=== PATIENT | female | born 1940 | race Caucasian/White ===

== ENCOUNTER 2017-04-16 03:18 | Inpatient (IN) | payer MEDICARE, MEDICAID ==
--- NOTE | 2017-04-16 03:55 | EDM.PDOC ---
ED HPI GENERAL MEDICAL PROBLEM - General Chief Complaint: General Stated Complaint: Weakness, diabetic Time Seen by Provider: 04/16/17 03:44 Source of Information: Reports: Patient, EMS History Limitations: Reports: Other (patient having chills and tremors when initially here, dyspneic, having difficulty answering questions, blood glucose of 60) - History of Present Illness INITIAL COMMENTS - FREE TEXT/NARRATIVE: Patient states has not felt well for 48 hours, complaining of weakness with two falls, nausea but no emesis, chills, sweats, and increased pain in lower extremities. She is an insulin dependent diabetic and has been taking insulin in spite of not eating and drinking. Ambulance leon stated BS was 44 and gave her two tubes of glucose and BS improved to 100 prior to arrival. Onset: Gradual Onset Date: 04/13/17 Onset Time: 12:00 Duration: Day(s):, Getting Worse Location: Reports: Generalized Quality: Reports: Throbbing Severity: Severe Improves with: Reports: None Worsens with: Reports: Movement Associated Symptoms: Reports: Diaphoresis, Fever/Chills, Loss of Appetite, Malaise, Nausea/Vomiting, Rash, Weakness. Denies: Confusion, Chest Pain, Cough , cough w sputum, Seizure, Shortness of Breath, Syncope lower legs bilaterally Pain Score (Numeric/FACES): 8 - Related Data Allergies Allergy/AdvReac Type Severity Reaction Status Date / Time Penicillins Allergy Cannot Verified 04/16/17 03:37 Remember Home Meds: Home Meds Aspirin 325 mg PO DAILY 08/28/16 [History] Enalapril [Vasotec] 40 mg PO DAILY 08/28/16 [History] Furosemide 80 mg PO DAILY 08/28/16 [History] Hydrocodone/Acetaminophen [Hydrocodon-Acetaminoph 7.5-325] 1 each PO Q12H PRN [History] Isosorbide Dinitrate 30 mg PO DAILY 08/28/16 [History] Omeprazole 20 mg PO DAILY 08/28/16 [History] Simvastatin [Zocor] 40 mg PO BEDTIME 08/28/16 [History] Carvedilol 1.5 tab PO BID 04/16/17 [History] Insulin NPH/Insulin Reg,Human [NovoLIN 70-30] 5 units SQ BEDTIME 04/16/17 [ History] Insulin NPH/Insulin Reg,Human [NovoLIN 70-30] 15 unit SUBCNJ ACBREAKFAST [History] Minoxidil [Minoxidil] 20 mg PO DAILY 04/16/17 [History] Multivitamins with Iron [Daily [place] with Iron] 1 tab PO DAILY 04/16/17 [History] Pramipexole [Mirapex] 1 - 2 tab PO BEDTIME 04/16/17 [History] Sennosides/Docusate Sodium [Senna Plus Tablet] 2 tab PO BID 04/16/17 [History] amLODIPine Besylate [Amlodipine Besylate] 10 mg PO DAILY 04/16/17 [History] Past Medical History HEENT History: Reports: Cataract Cardiovascular History: Reports: High Cholesterol, Hypertension Gastrointestinal History: Reports: GERD Genitourinary History: Reports: Other (See Below) Other Genitourinary History: CKD Stage 3 Endocrine/Metabolic History: Reports: Other (See Below) Other Endocrine/Metabolic History: DM Type II - Past Surgical History GI Surgical History: Reports: Other (See Below) Musculoskeletal Surgical History: Reports: Arthroscopic Knee, Carpal Tunnel, Other (See Below) Social & Family History - Tobacco Use Smoking Status *Q: Unknown Ever Smoked - Recreational Drug Use Recreational Drug Use: No ED ROS GENERAL - Review of Systems Review Of Systems: See Below Constitutional: Reports: Fever, Chills, Malaise, Weakness, Diaphoresis, Decreased Appetite HEENT: Reports: No Symptoms, Glasses Respiratory: Reports: No Symptoms Cardiovascular: Reports: Edema. Denies: Chest Pain, Lightheadedness, Palpitations, Syncope Endocrine: Reports: Low Glucose GI/Abdominal: Reports: Decreased Appetite, Nausea. Denies: Abdominal Pain, Constipation, Diarrhea, Hematochezia, Melena, Vomiting : Reports: No Symptoms. Denies: Dysuria, Frequency, Hematuria, Incontinence, Urgency Musculoskeletal: Reports: Leg Pain (bilat lower extremity pain, usually chronic but worse over the last few days, usually takes several doses of norco a day) Skin: Reports: Erythema, Other (increasing redness and edema of bilat lower extremitis over the last few days, noted to have large area of erythema over right lateral breast, patient unaware of it) Neurological: Reports: Tremors, Weakness, Other (two falls due to weakness in last 48 hours, denies hitting head or head injury). Denies: Confusion, Dizziness, Headache, Syncope Psychiatric: Reports: No Symptoms Hematologic/Lymphatic: Reports: No Symptoms Immunologic: Reports: No Symptoms ED EXAM, GENERAL - Physical Exam Exam: See Below Exam Limited By: Other (patient initially hypoglycemic and having chills so had difficulty answering questions. did a little better job after being given an amp of D50) General Appearance: Alert, Mild Distress (secondary to pain, chills and fever, appears ill) Eye Exam: Bilateral Eye: EOMI, PERRL Ears: Normal External Exam, Normal Canal, Hearing Grossly Normal, Normal TMs Ear Exam: Bilateral Ear: Auricle Normal, Canal Normal, TM normal Nose: Normal Inspection, Normal Mucosa, No Blood Throat/Mouth: Normal Inspection, Normal Lips, Normal Teeth, Normal Gums, Normal Oropharynx, Normal Voice, No Airway Compromise, Other (oral mucous membranes tacky) Head: Atraumatic, Normocephalic Neck: Normal Inspection, Supple, Non-Tender, Full Range of Motion Respiratory/Chest: No Respiratory Distress (heart tones distant without MRG, patient has 3-4 + pitting woody edema of lower extrremities with large areas of erythema, warmth, and increased tenderness of bilat shins. Multiple, small, Nodular thick walled vesicular type lesions noted as well. fluid collected from one for culture), Decreased Breath Sounds, Rales (bibasilar), Other (O2 sat 95% on room air but tachypnic with resp rate of 28, ). No: Rhonchi, Wheezing Cardiovascular: Regular Rate, Rhythm (heart tones distant. 3-4 plus pitting peripheral edema bilat up to knees. pulses difficult to palpate. Lower shins reddemed, painful and warm to touch with thick walled vesicular type lesions on both lower legs), Other. No: No JVD, No Rub, JVD GI/Abdominal: Soft (hypoactive bowel sounds, abdomen very mildly diffusely tender, more so in epigastric area. No guarding distension or rigidity) (Female) Exam: Deferred Rectal (Female) Exam: Deferred Back Exam: Normal Inspection. No: CVA Tenderness (L), CVA Tenderness (R), Paraspinal Tenderness, Vertebral Tenderness Extremities: Pedal Edema, Leg Pain, Limited Range of Motion, Increased Warmth, Redness. No: Rosmery's Sign Neurological: Alert, Oriented, CN II-XII Intact, Normal Cognition, Slow to Respond (initially but this improved after BS improved) Psychiatric: Normal Affect, Normal Mood (skin hot and dry. Lower extremities red, painful and warm to touch as described above. Large area of reddened skin , tender with palpation along right lateral breast. No open areas or areas of fluctuance noted) Skin Exam: Erythema, Increased Warmth Lymphatic: No Adenopathy EKG INTERPRETATION EKG Date: 04/16/17 Rhythm: Other (sinus rhyth with RBBB) Rate (Beats/Min): 81 [place]: Normal P-Wave: Present QRS: RBBB ST-T: Other (inverted lead V1 AND avr) QT: Normal Comparison: NA - No Prior EKG EKG Interpretation Comments: SINUS RHYTHM WITH RBBB, poor R wave progression, no previous to compare to Course - Vital Signs Last Recorded V/S: Last Vital Signs Temp 37.8 C 04/16/17 03:20 Pulse 81 04/16/17 03:20 Resp 24 H 04/16/17 03:20 BP 129/39 L 04/16/17 03:20 Pulse Ox 95 04/16/17 03:20 - Orders/Labs/Meds Orders: Active Orders 24 hr Category Date Time Status Admission Status [Patient Status] [ADT] Routine ADT 04/16/17 05:59 Active EKG 12 Lead [EKG Documentation Completion] [RC] STAT Care 04/16/17 04:13 Ordered Chest 1V Frontal [CR] Stat Exams 04/16/17 04:14 Taken CULTURE BLOOD [BC] Stat Lab 04/16/17 04:15 Results CULTURE BLOOD [BC] Stat Lab 04/16/17 04:20 Received CULTURE URINE [RM] Stat Lab 04/16/17 05:34 Received CULTURE WOUND [RM] Routine Lab 04/16/17 04:15 Received Dextrose 50% in Water Med 04/16/17 04:23 Active 50 ml IV ASDIRECTED PRN Sodium Chloride 0.9% [Normal Saline] 1,000 ml Med 04/16/17 04:30 Active IV ASDIRECTED Sodium Chloride 0.9% [Normal Saline] 1,000 ml Med 04/16/17 06:15 Active IV ASDIRECTED Blood Culture x2 Reflex Set [OM.PC] Stat Oth 04/16/17 04:17 Ordered Medication Orders Dextrose/Water (Dextrose 50% In Water) 50 ml IV ASDIRECTED PRN PRN Reason: Hypoglycemia Last Admin: 04/16/17 04:37 Dose: 50 ml Sodium Chloride (Normal Saline) 1,000 mls @ 250 mls/hr IV ASDIRECTED MONTSERRAT Last Admin: 04/16/17 04:20 Dose: 250 mls/hr Sodium Chloride (Normal Saline) 1,000 mls @ 125 mls/hr IV ASDIRECTED [place] Labs: Laboratory Tests 04/16/17 04/16/17 04/16/17 Range/Units 04:14 04:15 04:15 WBC 2.0 L (4.0-10.0) x10^3/uL RBC 4.11 (4.00-5.50) x10^6/uL Hgb 12.6 (12.0-16.0) g/dL Hct 35.8 (33.0-47.0) % MCV 87.1 (78.0-93.0) fL MCH 30.7 (26.0-32.0) pg MCHC 35.2 (32.0-36.0) g/dL RDW Coeff of Mishel 14.4 (10.0-15.0) % Plt Count 101 L D (130-400) x10^3/uL Add Manual Diff Yes Neutrophils % (Manual) 67 (50-80) % Band Neutrophils % 16 H (0-6) % Lymphocytes % (Manual) 10 L (25-50) % Monocytes % (Manual) 5 (2-11) % Metamyelocytes % 2 H (0) % Platelet Estimate Decreased L Polychromasia 1+ slight H Sodium 139 (136-145) mmol/L Potassium 3.5 (3.5-5.1) mmol/L Chloride 103 (98-107) mmol/L Carbon Dioxide 26 (21-32) mmol/L BUN 49 H D (7-18) mg/dL Creatinine 2.0 H (0.55-1.02) mg/dL Est Cr Clr Drug Dosing TNP Estimated GFR (MDRD) 24 Glucose 60 L (74-106) mg/dL POC Glucose 60 L (74-106) mg/dL Lactic Acid (0.4-2.0) mmol/L Calcium 8.4 L (8.5-10.1) mg/dL Corrected Calcium 9.36 (8.5-10.1) mg/dL Total Bilirubin 1.1 H (0.2-1.0) mg/dL AST 43 H (15-37) U/L ALT 25 (14-59) U/L Alkaline Phosphatase 55 (46-116) U/L Creatine Kinase 271 H* (26-192) U/L Creatine Kinase Index 1.1 (0.0-4.0) % CK-MB (CK-2) 3.0 (0.0-3.6) ng/mL Troponin I 0.196 H* (<=0.056) ng/mL C-Reactive Protein 41.4 H (<=0.9) mg/dL NT-Pro-B Natriuret Pep (<=450) pg/mL Total Protein 6.5 (6.4-8.2) g/dL Albumin 2.8 L (3.4-5.0) g/dL Globulin 3.7 Albumin/Globulin Ratio 0.76 Urine Color (YELLOW) Urine Appearance (CLEAR) Urine pH (5.0-8.0) Ur Specific [place] Urine Protein (NEGATIVE) mg/dL Urine Glucose (UA) (NEGATIVE) mg/dL Urine Ketones (NEGATIVE) mg/dL Urine Occult Blood (NEGATIVE) Urine Nitrite (NEGATIVE) Urine Bilirubin (NEGATIVE) Urine Urobilinogen (0.2) EU/dL Ur Leukocyte Esterase (NEGATIVE) Urine RBC (NOT SEEN) /HPF Urine WBC (NOT SEEN) /HPF Ur Squamous Epith Cells (NEGATIVE) /HPF Amorphous Sediment Urine Bacteria (NEGATIVE) /HPF Hyaline Casts (NEGATIVE) /HPF Urine Mucus (NEGATIVE) /LPF 04/16/17 04/16/17 04/16/17 Range/Units 04:15 04:15 04:55 WBC (4.0-10.0) x10^3/uL RBC (4.00-5.50) x10^6/uL Hgb (12.0-16.0) g/dL Hct (33.0-47.0) % MCV (78.0-93.0) fL MCH (26.0-32.0) pg MCHC (32.0-36.0) g/dL RDW Coeff of [place]hel (10.0-15.0) % Plt Count (130-400) x10^3/uL Add Manual Diff Neutrophils % (Manual) (50-80) % Band Neutrophils % (0-6) % Lymphocytes % (Manual) (25-50) % Monocytes % (Manual) (2-11) % Metamyelocytes % (0) % Platelet Estimate Polychromasia Sodium (136-145) mmol/L Potassium (3.5-5.1) mmol/L Chloride (98-107) mmol/L Carbon Dioxide (21-32) mmol/L BUN (7-18) mg/dL Creatinine (0.55-1.02) mg/dL Est Cr Clr Drug Dosing Estimated GFR (MDRD) Glucose (74-106) mg/dL POC Glucose (74-106) mg/dL Lactic Acid 2.4 H (0.4-2.0) mmol/L Calcium (8.5-10.1) mg/dL Corrected Calcium (8.5-10.1) mg/dL Total Bilirubin (0.2-1.0) mg/dL AST (15-37) U/L ALT (14-59) U/L Alkaline Phosphatase (46-116) U/L Creatine Kinase (26-192) U/L Creatine Kinase Index (0.0-4.0) % CK-MB (CK-2) (0.0-3.6) ng/mL Troponin I (<=0.056) ng/mL C-Reactive Protein (<=0.9) mg/dL NT-Pro-B Natriuret Pep 8888 H (<=450) pg/mL Total Protein (6.4-8.2) g/dL Albumin (3.4-5.0) g/dL Globulin Albumin/Globulin Ratio Urine Color Yellow (YELLOW) Urine Appearance Slightly cloudy H (CLEAR) Urine pH 5.5 (5.0-8.0) Ur Specific [place] 1.010 Urine Protein 30 H (NEGATIVE) mg/dL Urine Glucose (UA) Negative (NEGATIVE) mg/dL Urine Ketones Negative (NEGATIVE) mg/dL Urine Occult Blood Moderate H (NEGATIVE) Urine Nitrite Negative (NEGATIVE) Urine Bilirubin Negative (NEGATIVE) Urine Urobilinogen 0.2 (0.2) EU/dL Ur Leukocyte Esterase Negative (NEGATIVE) Urine RBC 5-10 H (NOT SEEN) /HPF Urine WBC 0-5 (NOT SEEN) /HPF Ur Squamous Epith Cells Few H (NEGATIVE) /HPF Amorphous Sediment Moderate Urine Bacteria Moderate H (NEGATIVE) /HPF Hyaline Casts Moderate H (NEGATIVE) /HPF Urine Mucus Few H (NEGATIVE) /LPF Meds: Medications Generic Name Dose Route Start Last Admin Trade Name Freq PRN Reason Stop Dose Admin Dextrose/Water 50 ml 04/16/17 04:23 04/16/17 04:37 Dextrose 50% In Water IV 50 ml ASDIRECTED PRN Administration Hypoglycemia Sodium Chloride 1,000 mls @ 250 mls/hr 04/16/17 04:30 04/16/17 04:20 Normal Saline IV 250 mls/hr ASDIRECTED [place] Administration Sodium Chloride 1,000 mls @ 125 mls/hr 04/16/17 06:15 Normal Saline IV ASDIRECTED [place] Discontinued Medications Generic Name Dose Route Start Last Admin Trade Name Freq PRN Reason Stop Dose Admin Ceftriaxone Sodium 1 gm 04/16/17 04:22 04/16/17 04:30 Rocephin IVPUSH 04/16/17 04:23 1 gm ONETIME ONE Administration Hydromorphone HCl 0.5 mg 04/16/17 04:31 04/16/17 04:40 Dilaudid IVPUSH 04/16/17 04:32 0.5 mg ONETIME ONE Administration Ondansetron HCl 4 mg 04/16/17 04:23 04/16/17 04:34 Zofran IVPUSH 04/16/17 04:24 4 mg ONETIME ONE Administration - Radiology Interpretation Free Text/Narrative:: No obvious acute process on portable CXR - Re-Assessments/Exams Free Text/Narrative Re-Assessment/Exam: 04/16/17 06:30 Patient initially hypoglycemic and had difficulty answering questions. Once that was corrected her mental status cleared up substancially. Sepsis considered immediately upon arrival. Patient examined thoroughly and labs and diagnostics done, including multiple cultures. Rocephin 1 gm IV given as well as zofran for nausea and dilaudid for pain in lower extremities. Given 600 cc of NS for fluid bolus and vital signs monitored closedly through stay in ER. Systolic never got below 100. Pain responded nicely to Dilaudid. Patient determined to be septic likely due to a skin source however can not rule out other contributing etiologies till all cultures are back. Discussed case with Dr Harvey and patient will be admitted to acute inpatient with Vanco dosing to be figured by [facility]. Patient condition is stable but with potential to deteriorate at this time. She is agreeable to hospitalization. Departure - Departure Time of Disposition: 06:36 Disposition: Admitted As Inpatient 65 Condition: Fair Clinical Impression: Cellulitis of breast Sepsis Qualifiers: Sepsis type: sepsis due to unspecified organism Qualified Code(s): A41.9 - Sepsis, unspecified organism Cellulitis Qualifiers: Site of cellulitis of extremity: lower extremity Laterality: unspecified laterality - Discharge Information - My Orders Last 24 Hours: My Active Orders 04/16/17 04:13 EKG 12 Lead [EKG Documentation Completion] [RC] STAT 04/16/17 04:14 Chest 1V Frontal [CR] Stat 04/16/17 04:15 CULTURE BLOOD [BC] Stat CULTURE WOUND [RM] Routine 04/16/17 04:17 Blood Culture x2 Reflex Set [OM.PC] Stat 04/16/17 04:20 CULTURE BLOOD [BC] Stat 04/16/17 04:23 Dextrose 50% in Water 50 ml IV ASDIRECTED PRN 04/16/17 04:30 Sodium Chloride 0.9% [Normal Saline] 1,000 ml IV ASDIRECTED 04/16/17 05:34 CULTURE URINE [RM] Stat 04/16/17 05:59 Admission Status [Patient Status] [ADT] Routine 04/16/17 06:15 Sodium Chloride 0.9% [Normal Saline] 1,000 ml IV ASDIRECTED - Assessment/Plan Last 24 Hours: My Active Orders 04/16/17 04:13 EKG 12 Lead [EKG Documentation Completion] [RC] STAT 04/16/17 04:14 Chest 1V Frontal [CR] Stat 04/16/17 04:15 CULTURE BLOOD [BC] Stat CULTURE WOUND [RM] Routine 04/16/17 04:17 Blood Culture x2 Reflex Set [OM.PC] Stat 04/16/17 04:20 CULTURE BLOOD [BC] Stat 04/16/17 04:23 Dextrose 50% in Water 50 ml IV ASDIRECTED PRN 04/16/17 04:30 Sodium Chloride 0.9% [Normal Saline] 1,000 ml IV ASDIRECTED 04/16/17 05:34 CULTURE URINE [RM] Stat 04/16/17 05:59 Admission Status [Patient Status] [ADT] Routine 04/16/17 06:15 Sodium Chloride 0.9% [Normal Saline] 1,000 ml IV ASDIRECTED
[2017-04-16] MEDS ORDERED: cefTRIAXone 1 GM Vial IVPUSH ONE (04:22)
[2017-04-16] MEDS ORDERED: Ondansetron 4 MG/2 ML SDV IVPUSH ONE (04:23)
[2017-04-16] MEDS ORDERED: 50% Dextrose in Water 50 ML Syringe IV PRN (04:23)
[2017-04-16] MEDS ORDERED: Sodium Chloride 0.9% 1,000 ML IV SCH ×2 (04:30→06:15)
[2017-04-16] MEDS ORDERED: HYDROmorphone 1 MG/ML Syringe IVPUSH ONE (04:31)
[2017-04-16 05:06] LABS: CHLORIDE,CL 103 mmol/L (98-107); SODIUM,NA 139 mmol/L (136-145)
[2017-04-16] MEDS ORDERED: Non-Formulary Medication 1 Each (Hydrocodone/Acetaminophen [Hydrocodon-Acetaminoph 7.5-325 PO PRN (09:55)
[2017-04-16] MEDS ORDERED: Aspirin 325 MG Tab.EC PO SCH (10:00)
[2017-04-16] MEDS ORDERED: Omeprazole 20 MG Cap.CR PO SCH (10:00)
[2017-04-16] MEDS ORDERED: cefTRIAXone 2 GM Vial IV SCH (10:00)
[2017-04-16] MEDS ORDERED: Acetaminophen/HYDROcodone 325-5 MG Tab PO PRN (10:31)
[2017-04-16] MEDS ORDERED: Sodium Chloride 0.9% 1,000 ML IV ONE (11:47)
[2017-04-16] MEDS ORDERED: Norepinephrine 4 MG in Dextrose 5% in Water 246 ML IV SCH ×2 (12:00)
[2017-04-16 12:45] VITALS: BP 87/42
[2017-04-16] MEDS ORDERED: Pramipexole 0.125 MG Tab PO SCH (20:00)
--- NOTE | 2017-04-17 08:07 | DISCH ---
DISCHARGE TRANSFER SUMMARY FINAL DIAGNOSES: 1. Sepsis. 2. Cellulitis of both lower extremities leading to sepsis. 3. Hypertension is a consequence of sepsis. 4. Right breast redness and mass. HOSPITAL COURSE: The patient was evaluated and admitted as reported by ambulance overnight for regression in 2 days history of not feeling well. Please see today's history and physical for details. In the hospital, she was treated with Rocephin in the emergency room and vancomycin on the floor. Blood cultures, urine cultures, wound cultures, and MRSA screen were done. Her initial blood pressure was 116 systolic but gradually kept dropping throughout the morning. It dropped down to 95/33, 90/36, and then most recently 86/33. This is despite IV fluid boluses. Because of the drop in blood pressure, she was started on Levophed for pressure support through peripheral IV and at that point contact was made at [facility] for transfer to intensive care. I did talk to Dr. Loera, critical-care physician at [facility]. He agreed to accept the patient in transfer for management and ongoing care. DISCHARGE MEDICATIONS: 1. Rocephin 2 g daily. 2. Omeprazole 20 mg daily. 3. Mirapex at bedtime. 4. Vancomycin, pharmacy to dose. 5. Stool softeners as needed. 6. Aspirin. Her other home medications were held because of the hypotension. These need to be determined to be continue after she has completed her care. Family is agreeable to transfer to [place] for ongoing care realizing that the patient is a DNR/DNI. Duration of discharge evaluation greater 30 minutes. FM: 04/16/2017 12:20:33 MODL: 04/16/2017 12:53:33 /[id number]
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
== END 2017-04-16 12:40 | disposition short-term general hospital (02) | DRG 872 ==
LOC: VM.ED 03:18 → VM.MS 05:59 → UNDOADMIN 06:20
PROVIDERS: ADMIT Family Medicine; ATTEND Family Medicine
DX: A41.9 Sepsis, unspecified organism (principal); L03.116 Cellulitis of left lower limb; L03.119 Cellulitis of unspecified part of limb; L03.115 Cellulitis of right lower limb; N61.0 Mastitis without abscess; I95.9 Hypotension, unspecified; E11.649 Type 2 diabetes mellitus with hypoglycemia without coma; N18.3 Chronic kidney disease, stage 3 (moderate); Z79.4 Long term (current) use of insulin; R06.00 Dyspnea, unspecified; I12.9 Hypertensive chronic kidney disease with stage 1 through stage 4 chronic kidney disease, or unspecified chronic kidney disease; N18.2 Chronic kidney disease, stage 2 (mild); Z66 Do not resuscitate; E11.22 Type 2 diabetes mellitus with diabetic chronic kidney disease; E78.00 Pure hypercholesterolemia, unspecified; E78.5 Hyperlipidemia, unspecified; Z96.642 Presence of left artificial hip joint; K21.9 Gastro-esophageal reflux disease without esophagitis; Z79.82 Long term (current) use of aspirin; Z79.899 Other long term (current) drug therapy; Z88.0 Allergy status to penicillin
CPT/HCPCS: 36415; 71010; 80053; 81001; 82550; 82553; 82962; 83605; 83880; 84484; 85025; 86140; 87040 ×2; 87070; 87077; 87086; 87147; 93005; 96361; 96374; 96375; 99285; J0696; J1170; J2405; J7030; A9270-GY; J3370; J7050; J7060